=== PATIENT | female | born 1970 | race African-American/Black ===

== ENCOUNTER 2016-09-05 22:49 | Emergency (ER) | payer OTHER ==
--- NOTE | ~2016-09-05 | EKG ---
PATIENT: BETH ABEL UNIT #: [id number] Ventricular Rate: 66 BPM Atrial Rate: 66 BPM P-R Interval: 126 ms QRS Duration: 80 ms Q-T Interval: 432 ms QTC Calculation(Bezet): 452 ms P [place]: 4 degrees Calculated R [place]: -47 degrees Diagnosis Line: Normal sinus rhythm with sinus arrhythmia Diagnosis Line: Left axis deviation Diagnosis Line: T wave abnormality, consider inferior ischemia Diagnosis Line: Abnormal ECG Diagnosis Line: No previous ECGs available Diagnosis Line: Confirmed by JUDE LYLES MD ([id number]) on 09/06/2016 Diagnosis Line: 5:43:09 PM INTERPRETING MD: TRUPTI SMITH
--- NOTE | ~2016-09-05 | CT71 ---
[facility] A Service of [facility] & [facility] RADIOLOGY TEXT RESULTS PATIENT: BETH ABEL LOCATION: [facility] : 70 UNIT #: [id number] AGE: [address]: Smiley Malone MD SEX: F ORDER DR: [id number] [facility] [address] [place], [place] [address] [id number] E MR#: [id number] Acc #: [id number] NAME: BETH ABEL : 1970 SEX: F STUDY DATE/TIME: 09/05/2016 23:33 UNIT: [facility] ROOM: STUDY DESCRIPTION: CT Head Wo Contrast Attending Physician: Smiley Malone M.D. Ordering Physician: Smiley Malone M.D. Primary Care Physician: Lorenzo Brewster M.D. MEDICAL IMAGING REPORT This report is preliminary unless electronic signature is present EXAM Head CT 09/05 at 23:33 INDICATIONS Shortness of air with lightheadedness and dizziness over 2 weeks. Symptoms worsened over the last 1-2 days. History of hypertension. This CT exam was performed with one or more of the following radiation dose reduction techniques: automatic exposure control, adjustment of mA and/or kV according to patient size, and iterative reconstruction. FINDINGS Axial noncontrast images were obtained from the skull base to the vertex. Ventricular size and configuration are normal. There is no evidence of acute infarct or hemorrhage. There are no extra-axial fluid collections. No mass lesion or mass effect is seen. There are no skull fractures. IMPRESSION Normal noncontrast head CT. Dictated by... Ignacio Hong Jr., M.D. THIS IS AN ELECTRONICALLY VERIFIED REPORT Ignacio Hong Jr., M.D. at 09/06/2016 10:00 PM MARTHA/eduardo TD: 09/06/2016 07:02 JOB #: [id number] MEDICAL IMAGING REPORT COPY
--- NOTE | ~2016-09-05 | CR72 ---
[facility] A Service of [facility] & [facility] RADIOLOGY TEXT RESULTS PATIENT: BETH ABEL LOCATION: [facility] : 70 UNIT #: [id number] AGE: [address]: Smiley Malone MD SEX: F ORDER DR: [id number] [facility] [address] [place], [place] [address] [id number] E MR#: [id number] Acc #: [id number] NAME: BETH ABEL : 1970 SEX: F STUDY DATE/TIME: 09/05/2016 21:55 UNIT: [facility] ROOM: STUDY DESCRIPTION: CR Chest Single View Portable Attending Physician: Smiley Malone M.D. Ordering Physician: Ed Doc Tone Bazan Primary Care Physician: Lorenzo Brewster M.D. MEDICAL IMAGING REPORT This report is preliminary unless electronic signature is present EXAM Portable chest, 09/05/2016 HISTORY Shortness of breath, chest pain, cough and chest congestion beginning today. Benign essential hypertension. FINDINGS There is mild cardiac enlargement. There is poor inspiratory result with bibasilar atelectasis. The lungs are otherwise clear. There are no pleural effusions. IMPRESSION Mild cardiac enlargement. No active pulmonary disease. Dictated by... Vincenzo Rivera M.D. THIS IS AN ELECTRONICALLY VERIFIED REPORT Vincenzo Rivera M.D. at 09/06/2016 2:19 PM KRT/psc TD: 09/06/2016 05:34 JOB #: [id number] MEDICAL IMAGING REPORT COPY
[2016-09-05 22:23] LABS: POC - CKMB <1.0 ng/mL (0.0-7.9); POC - TROPONIN <0.05 ng/mL (<=0.05)
[2016-09-05 22:42] LABS: BASOPHIL% 0.7 % (0-2.5); EOSINOPHIL% 0.3 % (0.0-7.0); HEMATOCRIT 40.9 % (35.0-45.0); HEMOGLOBIN 13.6 gm/dL (12.0-16.0); LYMPHOCYTE# 1.2 X10e3 (1.0-3.5); LYMPHOCYTE% 19.2 % (17.0-45.0); MEAN CELL VOLUME 103.3 FL (83-96); MEAN CORPUSCULAR HEMOGLOBIN 34.3 PG (28-34); MEAN CORPUSCULAR HGB CONC 33.2 g/dL (30-36); MEAN PLATELET VOLUME 8.1 FL (6.5-11.5); MONOCYTE# 0.5 X10e3 (0-1.0); MONOCYTE% 8.9 % (3.0-12.0); NEUTROPHIL# 4.3 X10e3 (1.5-7.1); NEUTROPHIL% 70.9 % (40-75); PLATELET COUNT 282 X10e3 (140-420); RED BLOOD COUNT 3.96 X10e (3.90-5.30); RED CELL DISTRIBUTION WIDTH 15.1 % (11.0-15.5); WHITE BLOOD COUNT 6.1 X10e3 (4.0-10.5)
[2016-09-05 22:43] LABS: DIFF IND NO
[~2016-09-05 22:49] MED LIST: CIPRO PO; DEPO-PROVE150 MG/1 M IM; FLEXERIL PO; HYDROCHLOROTH12.5 M1 PO; IBUPROFEN PO; LIPITOR20 MG DOB; NORVASC PO; PYRIDIUM PO; TESSALON PERLE100 M1 DOB; ULTRAM PO; VICODIN PO; VITAMIN D250000 UNIT PO; VOLTAREN75 MG PO
[2016-09-05 22:51] LABS: INFLUENZA A NEG (NEG); INFLUENZA B NEG (NEG)
[2016-09-05 23:25] LABS: ALKALINE PHOSPHATASE 58 U/L (32-92); ALT (SGPT) 23 U/L (10-40); AST (SGOT) 27 U/L (10-42); BILIRUBIN, DIRECT 0.2 mg/dL (0.0-0.2); BILIRUBIN,INDIRECT 0.7 mg/dL (0.0-0.9); BILIRUBIN,TOTAL 0.9 mg/dL (0.2-2.0); BLOOD UREA NITROGEN 10 mg/dL (9-23); CALCIUM SERUM 8.6 mg/dL (8.4-10.2); CARBON DIOXIDE 23 mmol/L (22-31); CHLORIDE 104 mmol/L (100-111); CREATININE SERUM 0.8 mg/dL (0.6-1.4); GLOM FILT RATE Estimated ABOVE60 mL/min (>60); GLUCOSE FASTING 80 mg/dL (70-110); POTASSIUM 3.9 mmol/L (3.5-5.1); PROTEIN TOTAL SERUM 8.1 g/dL (6.0-8.3); SODIUM 134 mmol/L (135-145)
== END 2016-09-06 00:32 | disposition home or self-care (01) ==
LOC: CED 22:49
PROVIDERS: Emergency Medicine
DX: J40 Bronchitis, not specified as acute or chronic (principal); I10 Essential (primary) hypertension; E78.5 Hyperlipidemia, unspecified
CPT/HCPCS: 36415; 70450; 71010; 80048; 80076; 82553; 84484; 84703; 85025; 87804; 93005; 99284

== ENCOUNTER → 2016-09-27 | Outpatient (CLI) | payer OTHER ==
--- NOTE | ~2016-09-27 | CR63 ---
[facility] A Service [facility] RADIOLOGY TEXT RESULTS PATIENT: BETH ABEL LOCATION: [facility] : 70 UNIT #: [id number] AGE: [address]: Generic Doctor NOT IN SYSTEM SEX: F ORDER DR: [id number] [place], [place] [address] [id number] O MR#: [id number] Acc #: [id number] NAME: BETH ABEL : 1970 SEX: F STUDY DATE/TIME: 09/27/2016 13:48 UNIT: [facility] ROOM: STUDY DESCRIPTION: CR Chest 2 View Attending Physician: Generic Doctor Not In System Referring Physician: Generic Doctor Not In System Ordering Physician: Lorenzo Brewster M.D. Primary Care Physician: Lorenzo Brewster M.D. MEDICAL IMAGING REPORT This report is preliminary unless electronic signature is present EXAM Chest x-ray. DATE OF EXAM 09/27/2016 HISTORY Persistent shortness of breath with cough and congestion over the past month. COMPARISON 09/05/2016 TECHNIQUE 2 views of the chest were obtained. FINDINGS Since previous examination, a nonspecific infiltrate along the left heart border has not changed. The right lung is clear. The vascular pattern is normal. Heart size is normal. No pleural fluid is seen. IMPRESSION Nonspecific linear infiltrate is again seen along the left heart border, and not significantly changed from previous exam. No new infiltrates are noted. Dictated by... Ignacio Chacko M.D. THIS IS AN ELECTRONICALLY VERIFIED REPORT Ignacio Chacko M.D. at 09/27/2016 6:02 PM RLF/jt [facility] A [facility] RADIOLOGY TEXT RESULTS PATIENT: BETH ABEL LOCATION: [facility] : 70 UNIT #: [id number] AGE: [address]: Phil Doctor NOT IN SYSTEM SEX: F ORDER DR: TD: 09/27/2016 15:29 JOB #: [id number] MEDICAL IMAGING REPORT Page 1 of 1 COPY
== END | disposition home or self-care (01) ==
LOC: CRAD 13:28
DX: R06.02 Shortness of breath (principal); R91.8 Other nonspecific abnormal finding of lung field
CPT/HCPCS: 71020